=== PATIENT | female | born 2000 | race Caucasian/White ===

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

== ENCOUNTER 2022-04-24 19:32 | Inpatient (IN) | payer OTHER, SELFPAY ==
--- NOTE | ~2022-04-24 | CT_ITS ---
EXAMINATION: CT SOFT TISSUE NECK WITH CONTRAST CLINICAL INFORMATION: Bilateral tonsillar swelling. Abscess. Trismus. COMPARISON: None available. TECHNIQUE: Multidetector helical imaging was performed in the axial plane following the administration of 60 mL of Omnipaque 350 intravenous contrast. Multiple axial reformats and coronal/sagittal reconstructions were created the technologist workstation for review. This CT examination was performed using dose optimization techniques as appropriate, variously including the following: *Automated exposure control. *Adjustment of mA and/or kV according to patient size (this includes techniques or standardized protocols for targeted exams where dose is matched to indication/reason for exam; i.e. extremities or head). *Use of iterative reconstruction technique. DLP: 451 mGy-cm FINDINGS: No significant cutaneous thickening or subcutaneous inflammation. No discrete fluid collection within the deep tissues of the neck. The premaxillary, retromaxillary, pterygopalatine fossa, orbital apical, parapharyngeal, and prelaryngeal adipose tissue is maintained. Normal appearance of the parotid, submandibular, and thyroid glands. Bilateral level IIa lymph nodes measure up to 1.6 cm. Otherwise, scattered subcentimeter lymph nodes bilaterally, none of which are pathologically enlarged or abnormally enhancing. No demonstrated focal lesion or abnormal enhancement within the intrinsic tissues of the tongue or floor of mouth. Moderate prominence of the bilateral palatine tonsils. No overtly demonstrated focal lesion or collection. Otherwise, normal mucosal contours of the pharynx and larynx without abnormal enhancement. Normal appearance of the hyoid bone, thyroid cartilage, or cartilaginous trachea. The airways remains widely patent. No radiopaque foreign bodies. The atlantooccipital and atlantoaxial articulations remain well aligned. Reversal the normal cervical lordosis centered on C5. Otherwise, there is anatomic alignment of the vertebral bodies and posterior elements. No evidence of acute fracture or subluxation of the cervical spine. The vertebral body heights are maintained. The intervertebral disc spaces are maintained. No evidence of epidural collection. There is no prevertebral soft tissue swelling. Normal opacification of the cervical arterial and venous structures. The visualized portion of the skull base is without significant abnormalities. The visualized paranasal sinuses are clear. The mastoid air cells and middle ear cavities are clear. No demonstrated significant periapical odontogenic disease. CT Upper Chest: The visualized lung apices and upper mediastinum are within normal limits. CT/CT soft tissue neck w IV con IMPRESSION: 1. Moderate prominence of the bilateral palatine tonsils. No overtly demonstrated focal lesion or collection. 2. Bilateral mildly enlarged level IIa lymph nodes, likely reactive in nature. 3. No additional focal lesion, collection, lymphadenopathy, or abnormal enhancement within the soft tissues of the neck.
[2022-04-24 19:50] VITALS: BP 125/63; PULSE 87; RESP 20; TEMP 37; O2SAT 98; BMI 18.6
[2022-04-24 20:14] LABS: Strep A Nucleic Acid Negative (Negative)
[2022-04-24 20:25] LABS: Monotest Negative (Negative)
--- NOTE | 2022-04-24 21:21 | ED_ITS ---
HPI - General Adult General Chief complaint: General Medical Stated complaint: swollen tonsils Time Seen by Provider: 04/24/22 20:56 Source: patient Mode of arrival: ambulatory Limitations: no limitations History of Present Illness HPI narrative: This is a 21-year-old female presenting to the emergency department with severe sore throat x4 days progressively worsening. Patient tells me that she frequently gets swollen tonsils however it is never been this bad. She tells me she is having difficulties controlling her secretions and she has noted that her voice has been changing progressively worsening over the past 4 days. Patient tells me she was seen at the school clinic and was prescribed aspirin and an other medication. Patient reports 10/10 sore throat and feels like it radiates into her right ear and right jaw. She tells me the pain is bilateral however worse on the right. She reports subjective fevers and chills. Denies chest pain, shortness of breath, nausea, vomiting, abdominal pain, headache, dizziness, vision changes. Patient's still has her tonsils. Related Data Allergies Allergy/AdvReac Type Severity Reaction Status Date / Time shellfish derived Allergy Hives Verified 11/21/21 13:42 Review of Systems Review of Systems: Constitutional : No Weight loss, No Fever, No Chills, No Fatigue, No Malaise ENT/Mouth : + sore throat, No Rhinorrhea Eyes: No Eye Pain, No Swelling, No Redness Cardiovascular : No Chest Pain, No SOB, No Dyspnea on Exertion, No Orthopnea, No Edema, No Palpitations Respiratory : No Cough, No Sputum, No Wheezing Gastrointestinal : No Nausea, No Vomiting, No Diarrhea, No Constipation, No abdominal Pain, No Hematochezia, No Melena Genitourinary : No Dysuria, No Urinary Frequency, No Hematuria, Musculoskeletal : No joint pain, No Myalgias, No Joint Swelling Skin : No Skin Lesions, No rash Neuro : No Weakness, No Numbness, No Dizziness, No Headache Psych : No Anxiety/Panic, No Depression All other systems reviewed and are negative Yes all other systems are reviewed and are negative [facility] Past Medical History Attestation statement: The following information was validated with the patient. Source: old records reviewed and nursing notes reviewed Social History Social History Advance Directives: No Advance Directives Information Provided: No Physical Exam ED Vital Signs: Vital Signs - 24 hr 04/24/22 19:50 04/24/22 22:11 Temperature 98.6 F Pulse Rate 87 84 Respiratory Rate 20 17 Blood Pressure 125/63 115/56 L Pulse Oximetry 98 95 Oxygen Delivery Method Room Air Room Air BMI result Body Mass Index 18.6 Vital signs stable Appearance: Alert.? Oriented X3. Patient appears uncomfortable. Patient with muffled voice and is having difficulty controlling secretions. Head: Normocephalic, atraumatic, no step-offs or deformities Eyes: Pupils equal, round and reactive to light.? ENT: Bilateral tonsils with severe erythema, edema, compressing the uvula at the midline. Right-sided submandibular adenopathy noted. Right-sided mastoid tenderness noted. No lymphadenopathy on the left, no mastoid tenderness on the left. ?Bilateral tympanic membranes within normal limits, ear canals within normal limits. No pain with manipulation of external ear. Neck: Normal inspection.? Neck supple.? CVS: Normal heart rate and rhythm.? Pulses normal.? Respiratory: No respiratory distress.? Breath sounds normal.? Abdomen: Soft and nontender.? Skin: Skin warm and dry.? Normal skin color.? Normal skin turgor.? Extremities: 5/5 strength to bilateral upper and lower extremities Neuro: Oriented X 3.? No motor deficit.? No sensory deficit. CN 2-12 intact Course Reevaluation(s) Reevaluation #1: Patient noted to have his leukocytosis likely secondary to throat infection, chemistry with no acute electrolyte abnormalities requiring intervention. Lactic normal. HCG negative. Strep and mono negative. CT of soft tissue neck pending. Patient remains hemodynamically stable , still controlling her own se cretions. Time: 22:23 Reevaluation #2: Patients trismus improving. Feels slightly better. CT of neck soft tissues pending. Disscussed case w/ hospitalist who do not feel comfortable taking this patient for admission. Recommend reaching out to ICU. Time: 22:50 Reevaluation #3: Discussed case with Dr. Perez who would like me to share CT results with him prior to making a decision about admission. Time: 23:14 Additional Reevaluation(s): [address] Maharaj ENT at [facility] who tells me that there is not much ENT would do, he recommends waiting 4-6 hours and observing patient until Decadron takes full affect. He recommends discharging this patient home o n clindamycin 300 mg q.i.d. for 10 days and outpatient follow-up with ENT. He tells me there is a large abscess for us to call back [facility]. He also reports that if she starts having difficulty controlling secretions or airway compromise to please contact ENT at [facility]. 2334 CT soft tissues neck with moderate prominence of bilateral palatine tonsils, no demonstrated focal lesion or collection. Enlarged level 2A lymph nodes likely reactive. No focal lesions, collection, lymphadenopathy or abnormal enhancement within soft tissues of the neck. Reached out to Dr. Coronel for possible ICU admission 2335 Accepted to ICU for airway monitoring Medical Decision Making MDM Narrative Medical decision making narrative: 2150 21-year-old female presents with severe sore throat x4 days progressively worsening. Is having difficulty controlling secretions and reports changes in voice. Physical examination with severe tonsillar erythema, edema bilaterally with compression of the uvula. Trismus noted as well as right-sided submandibular adenopathy and right-sided mastoid tenderness. Patient appears uncomfortable, again with difficulty controlling secretions. Concerns for airway compromise, peritonsillar abscess. Other differentials include strep, mono, viral pharyngitis. Plan at this time is to obtain a Monospot, strep test, gonorrhea and chlamydia throat swab. Will obtain CT of neck soft tissues to rule out peritonsillar abscess. Patient will receive clindamycin IV as well as fluids will also give Decadron IV. I suspect that patient will need transfer to tertiary center with ENT. This case was discussed with my attending who agrees with my diagnosis and treatment plan. Medical Records Medical records reviewed: Yes I reviewed the patient's medical records. Lab Data Lab results reviewed: Yes I reviewed the patient's lab results. Result diagrams: 04/24/22 21:40 04/24/22 21:40 Labs: Lab Results 04/24/22 04/24/22 04/24/22 Range/Units 19:58 19:58 21:40 WBC 13.4 H (4.8-10.8) X10*3/uL RBC 4.57 (4.20-5.50) X10*6/uL Hgb 13.5 (12.0-16.0) g/dl Hct 40.7 (37.0-47.0) % MCV 89.1 (80.0-98.0) fL MCH 29.5 (27.0-33.0) pg MCHC 33.2 (31.0-35.0) g/dl RDW 13.1 (11.0-16.0) % Plt Count 342 (160-400) X10*3/uL MPV 9.5 (9.4-12.3) fL Immature Gran % (Auto) 0.4 (0.0-0.4) % Neut % (Auto) 84.5 H (45-73) % Lymph % (Auto) 7.5 L (20-40) % Pierce % (Auto) 7.3 (2-11) % Eos % (Auto) 0.1 (0-4) % Baso % (Auto) 0.2 (0-2) % Lymph # (Auto) 1.0 L (1.2-4.9) X10*3/uL Pierce # (Auto) 1.0 (0.1-1.2) X10*3/uL Eos # (Auto) 0.0 (0.0-0.4) X10*3/uL Baso # (Auto) 0.0 (0.0-0.2) X10*3/uL Abs Immat Gran (auto) 0.06 H (0.00-0.03) X10*3/uL Absolute Neuts (auto) 11.3 H (2.0-8.3) x10*3/uL Absolute Nucleated RBC 0.000 (0.0-0.012) X10*3/uL Nucleated RBC % (auto) 0.0 (0.0-0.2) /100WBC Sodium (135-145) mmol/L Potassium (3.3-5.1) mmol/L Chloride (96-108) mmol/L Carbon Dioxide (22-29) mmol/L Anion Gap (12-20) BUN (9-16) mg/dL Creatinine (0.5-1.4) mg/dL Estim Creat Clear Calc Estimated GFR Random Glucose (60-115) mg/dL Lactic Acid (0.5-2.0) mmol/L Calcium (8.4-10.2) mg/dL Magnesium (1.6-2.6) mg/dL Total Bilirubin (0.0-1.0) mg/dL AST (5-31) U/L ALT (0-31) U/L Alkaline Phosphatase (39-117) U/L Total Protein (6.5-8.0) g/dL Albumin (3.5-5.0) g/dL Beta HCG, Quant mIU/mL COVID-19 (MARISOL) (Negative) COVID-19 Clin Com Monoscreen Negative (Negative) S. pyogenes GrpA TIM Negative (Negative) 04/24/22 04/24/22 04/24/22 Range/Units 21:40 21:40 21:40 WBC (4.8-10.8) X10*3/uL RBC (4.20-5.50) X10*6/uL Hgb (12.0-16.0) g/dl Hct (37.0-47.0) % MCV (80.0-98.0) fL MCH (27.0-33.0) pg MCHC (31.0-35.0) g/dl RDW (11.0-16.0) % Plt Count (160-400) X10*3/uL MPV (9.4-12.3) fL Immature Gran % (Auto) (0.0-0.4) % Neut % (Auto) (45-73) % Lymph % (Auto) (20-40) % Pierce % (Auto) (2-11) % Eos % (Auto) (0-4) % Baso % (Auto) (0-2) % Lymph # (Auto) (1.2-4.9) X10*3/uL Pierce # (Auto) (0.1-1.2) X10*3/uL Eos # (Auto) (0.0-0.4) X10*3/uL Baso # (Auto) (0.0-0.2) X10*3/uL Abs Immat Gran (auto) (0.00-0.03) X10*3/uL Absolute Neuts (auto) (2.0-8.3) x10*3/uL Absolute Nucleated RBC (0.0-0.012) X10*3/uL Nucleated RBC % (auto) (0.0-0.2) /100WBC Sodium 138 (135-145) mmol/L Potassium 4.2 (3.3-5.1) mmol/L Chloride 100 (96-108) mmol/L Carbon Dioxide 24 (22-29) mmol/L Anion Gap 18 (12-20) BUN 12 (9-16) mg/dL Creatinine 0.99 (0.5-1.4) mg/dL Estim Creat Clear Calc 85.0 Estimated GFR > 60 Random Glucose 97 (60-115) mg/dL Lactic Acid 0.8 (0.5-2.0) mmol/L Calcium 9.6 (8.4-10.2) mg/dL Magnesium 2.0 (1.6-2.6) mg/dL Total Bilirubin 0.9 (0.0-1.0) mg/dL AST 17 (5-31) U/L ALT 11 (0-31) U/L Alkaline Phosphatase 78 (39-117) U/L Total Protein 7.6 (6.5-8.0) g/dL Albumin 4.9 (3.5-5.0) g/dL Beta HCG, Quant < 2 mIU/mL COVID-19 (MARISOL) Negative (Negative) COVID-19 Clin Com See Note Monoscreen (Negative) S. pyogenes GrpA TIM (Negative) Critical Care Time Critical Care Time Critical Care Time: Yes Total Critical Care Time: 35 Attestation: I attest to this time spent taking care of the patient, obtaining history, physical, reviewing labs, imaging, speaking to my attending, speaking to specialist. Discharge Plan Discharge Clinical Impression: Pharyngitis Patient Disposition: Admitted As Inpatient
[2022-04-24 21:48] LABS: Basophils Percent Auto 0.2 % (0-2); Eosinophils Percent Auto 0.1 % (0-4); Hematocrit 40.7 % (37.0-47.0); Hemoglobin 13.5 g/dl (12.0-16.0); Imm Gran Abs Auto 0.06 X10*3/uL (0.00-0.03); Imm Gran Pct Auto 0.4 % (0.0-0.4); Lymphocytes Percent Auto 7.5 % (20-40); MANUAL DIFF FLAG NO; Mean Corpuscular HGB Conc 33.2 g/dl (31.0-35.0); Mean Corpuscular Hemoglobin 29.5 pg (27.0-33.0); Mean Corpuscular Volume 89.1 fL (80.0-98.0); Mean Platelet Volume 9.5 fL (9.4-12.3); Monocytes Percent Auto 7.3 % (2-11); Neutrophils Absolute Auto 11.3 x10*3/uL (2.0-8.3); Neutrophils Percent Auto 84.5 % (45-73); Platelet Count 342 X10*3/uL (160-400); Red Blood Count 4.57 X10*6/uL (4.20-5.50); Red Cell Distribution Width 13.1 % (11.0-16.0); White Blood Count 13.4 X10*3/uL (4.8-10.8)
[2022-04-24] MEDS: 0.9 % Sodium Chloride 1,000 ML 999 ML IV (21:57)
[2022-04-24] MEDS: Ketorolac Tromethamine 15 MG/ML VIAL 30 MG IVPUSH (22:01)
[2022-04-24] MEDS: dexAMETHasone sod phosphate 10 MG/ML VIAL IVPUSH (22:01)
[2022-04-24] MEDS: Clindamycin Phosphate/D5W 600 MG/50 ML PIGGYBACK 100 MG IV (22:02)
[2022-04-24] MEDS: Lidocaine HCl Viscous 2 % 15 ML SOLUTION MUCOUS MEM (22:02)
[2022-04-24 22:04] LABS: Lactic Acid 0.8 mmol/L (0.5-2.0)
[2022-04-24 22:09] LABS: Alanine Aminotransferase 11 U/L (0-31); Albumin Level 4.9 g/dL (3.5-5.0); Alkaline Phosphatase 78 U/L (39-117); Anion Gap 18 (12-20); Aspartate Amino Transferase 17 U/L (5-31); Bilirubin Total 0.9 mg/dL (0.0-1.0); Blood Urea Nitrogen 12 mg/dL (9-16); Calcium 9.6 mg/dL (8.4-10.2); Carbon Dioxide 24 mmol/L (22-29); Chloride 100 mmol/L (96-108); Estimated Glomerular Filt Rate > 60; Glucose Random 97 mg/dL (60-115); Potassium 4.2 mmol/L (3.3-5.1); Sodium 138 mmol/L (135-145); Total Protein 7.6 g/dL (6.5-8.0)
[2022-04-24 22:10] LABS: COVID-19 Test Negative (Negative); IDNOW Serial# 9DB6401D
[2022-04-24 22:11] VITALS: BP 115/56; PULSE 84; RESP 17; O2SAT 95
[2022-04-24 22:15] LABS: HCG Quantitative < 2 mIU/mL
[2022-04-24] MEDS: iohexoL 350 MG/ML 100 ML INFUS..BTL 60 ML IV (23:00)
--- NOTE | 2022-04-24 23:07 | PC.NURSE ---
@[phone] OLGA BARCENAS REQUEST CALL OUT TO [facility] PT TX LINE FOR THIS PT EMANI ANSWERS,TAKES PT INFO AND CALL BACK NUMBER THAN STATES SHE WILL CALL HER BACK
--- NOTE | 2022-04-24 23:15 | PC.NURSE ---
@ [phone] EMANI FROM THE [facility] PT TX LINE CALLS BACK TO SPEAK WITH OLGA BARCENAS TAKES OVER CALL RIGHT AWAY
[2022-04-25] VITALS (15 sets, daily range): BP systolic 89–124; BP diastolic 39–62; PULSE 58–75; RESP 13–22; TEMP 36.4–36.9; O2SAT 96–99; BMI 18.6
[2022-04-25 00:13] LABS: Appearance Urine Cloudy; Color Urine Dark Yellow; Glucose Urine UA Negative (Negative); Leukocyte Esterase Urine Trace (Negative); Nitrite Urine Negative (Negative); PH 5.5 (5.0-9.0); Specific Gravity - Urine >= 1.030 (1.005-1.025); UMIC TRIGGER UACC YES; Urine Blood Negative (Negative); Urine Ketones 80 mg/dL (Negative); Urine Protein 30 (1+) mg/dL (Neg-Trace)
[2022-04-25 00:15] LABS: Bacteria Urine 3+ (None Seen); Hyaline Casts Urine 0-2 /LPF (0-2); UACC Culture Trigger YES
--- NOTE | 2022-04-25 01:00 | PC.NURSE ---
ICU PA in room assessing patient
--- NOTE | 2022-04-25 01:17 | PM.CCHP ---
History of Present Illness Date of Service: 04/25/22 Attending physician on admission: Srikanth Perez Chief Complaint: sore throat The patient is a 21-year-old female with no past medical history? who presented to the emergency room with sore throat x4 days? that progressively worsened.? Patient reports that she gets frequent? swollen tonsils throughout the year, but this time she is having difficulty controlling secretions and noted that her voice was changing.? She states she went to her school clinic was prescribed aspirin and another medication she is unsure.?? ?In the emergency room patient tonsils noted to be severely swollen compressing uvula at the midline,? white count elevated to? 13.4.? Patient hemodynamically stable. ? ED provider consulted with? ENT,? who recommended Decadron and clindamycin.? In follow-up outpatient.?? CT soft tissue of the neck showing moderate prominence of bilateral palatine tonsils, no demonstrated focal lesion or collection.? Enlarged level IIa lymph nodes.? No focal lesions, collection, lymphadenopathy or abnormal enhancement within soft tissues of the neck ?Patient will be admitted to the ICU for airway? management Review of Systems Review of Systems: Constitutional : No Weight loss, No Fever, No Chills, No Fatigue, No Malaise ENT/Mouth : + sore throat, No Rhinorrhea Eyes: No Eye Pain, No Swelling, No Redness Cardiovascular : No Chest Pain, No SOB, No Dyspnea on Exertion, No Orthopnea, No Edema, No Palpitations Respiratory : No Cough, No Sputum, No Wheezing Gastrointestinal : No Nausea, No Vomiting, No Diarrhea, No Constipation, No abdominal Pain, No Hematochezia, No Melena Genitourinary : No Dysuria, No Urinary Frequency, No Hematuria, Musculoskeletal : No joint pain, No Myalgias, No Joint Swelling Skin : No Skin Lesions, No rash Neuro : No Weakness, No Numbness, No Dizziness, No Headache Psych : No Anxiety/Panic, No Depression Yes all other systems are reviewed and are negative [facility] Social History Social History Advance Directives: No Advance Directives Information Provided: No Meds Allergies Allergy/AdvReac Type Severity Reaction Status Date / Time shellfish derived Allergy Hives Verified 11/21/21 13:42 Active Medications: Current Medications Enoxaparin Sodium (Enoxaparin Sodium 30 Mg/0.3 Ml Syringe) 30 mg SUBCUT Q24H [facility] Clindamycin Phosphate (Cleocin) 600 mg in 50 mls @ 100 mls/hr IV Q8H [facility] Pharmacy Consult (Consult Rx Perform Med Rec) 1 each MISCELLANE ONCE PRN PRN Reason: Consult order Physical Exam Vital Signs: Vital Signs: Last Vital Signs Temp 98.4 F 04/25/22 00:11 Pulse 61 04/25/22 00:11 Resp 16 04/25/22 00:11 BP 107/50 L 04/25/22 00:11 Pulse Ox 97 04/25/22 00:11 O2 Del Method 04/25/22 00:11 BMI result Body Mass Index 18.6 Constitutional: Alert, in no distress. Sitting comfortably on the? stretcher. Mental Status: Oriented to person, place and time. Head: Normocephalic. Eyes: Pupils are equal, round and reactive to light. Extraocular muscles intact. Ear, Nose and Throat: Bilateral tonsils with severe erythema, edema, compressing the uvula at the midline.? Right-sided submandibular adenopathy noted.? Right-sided mastoid tenderness noted.? No lymphadenopathy on the left, no mastoid tenderness on the left.? Bilateral tympanic membranes within normal limits, ear canals within normal limits.? No pain with manipulation? Neck: Supple, Full range of motion. Respiratory: lungs CTA, no wheezing, rhonchi, rales Cardiovascular: S1 S2 regular. No murmurs, rubs or gallops. Gastrointestinal: Abdomen soft, non-tender, non-distended. Normal bowel sounds. No pulsatile mass. No hepatosplenomegaly. Genitourinary: No costovertebral angle tenderness. Neurologic: Cranial nerves II-XII grossly intact. No focal neurological deficits. Moves all extremities spontaneously. Sensation intact bilaterally. Skin: No rashes or lesions. No petechiae or purpura. Musculoskeletal: No cyanosis or clubbing. No gross deformities. Normal range of motion. Psychiatric: Normal mood and affect Results Labs CBC and Chem 7: 04/24/22 21:40 04/24/22 21:40 Labs: Laboratory Results - last 24 hr 04/24/22 04/24/22 04/24/22 19:58 19:58 21:40 MCV 89.1 MCH 29.5 MCHC 33.2 RDW 13.1 Plt Count 342 MPV 9.5 Immature Gran % (Auto) 0.4 Neut % (Auto) 84.5 H Lymph % (Auto) 7.5 L [place] % (Auto) 7.3 Eos % (Auto) 0.1 Baso % (Auto) 0.2 Lymph # (Auto) 1.0 L [place] # (Auto) 1.0 Eos # (Auto) 0.0 Baso # (Auto) 0.0 Abs Immat Gran (auto) 0.06 H Absolute Neuts (auto) 11.3 H Absolute Nucleated RBC 0.000 Nucleated RBC % (auto) 0.0 Anion Gap Estim Creat Clear Calc Estimated GFR Random Glucose Lactic Acid Calcium Magnesium Total Bilirubin AST ALT Alkaline Phosphatase Total Protein Albumin Beta HCG, Quant Urine Color Urine Appearance Urine pH Ur Specific [place] Urine Protein Urine Glucose (UA) Urine Ketones Urine Blood Urine Nitrite Ur Leukocyte Esterase Urine RBC Urine WBC Ur Squamous Epith Cells Urine Bacteria Hyaline Casts COVID-19 (MARISOL) COVID-19 Clin Com Monoscreen Negative S. pyogenes GrpA TIM Negative 04/24/22 04/24/22 04/24/22 21:40 21:40 21:40 MCV MCH MCHC RDW Plt Count MPV Immature Gran % (Auto) Neut % (Auto) Lymph % (Auto) [place] % (Auto) Eos % (Auto) Baso % (Auto) Lymph # (Auto) [place] # (Auto) Eos # (Auto) Baso # (Auto) Abs Immat Gran (auto) Absolute Neuts (auto) Absolute Nucleated RBC Nucleated RBC % (auto) Anion Gap 18 Estim Creat Clear Calc 85.0 Estimated GFR > 60 Random Glucose 97 Lactic Acid 0.8 Calcium 9.6 Magnesium 2.0 Total Bilirubin 0.9 AST 17 ALT 11 Alkaline Phosphatase 78 Total Protein 7.6 Albumin 4.9 Beta HCG, Quant < 2 Urine Color Urine Appearance Urine pH Ur Specific [place] Urine Protein Urine Glucose (UA) Urine Ketones Urine Blood Urine Nitrite Ur Leukocyte Esterase Urine RBC Urine WBC Ur Squamous Epith Cells Urine Bacteria Hyaline Casts COVID-19 (MARISOL) Negative COVID-19 Clin Com See Note Monoscreen S. pyogenes GrpA TIM 04/25/22 00:05 MCV MCH MCHC RDW Plt Count MPV Immature Gran % (Auto) Neut % (Auto) Lymph % (Auto) [place] % (Auto) Eos % (Auto) Baso % (Auto) Lymph # (Auto) [place] # (Auto) Eos # (Auto) Baso # (Auto) Abs Immat Gran (auto) Absolute Neuts (auto) Absolute Nucleated RBC Nucleated RBC % (auto) Anion Gap Estim Creat Clear Calc Estimated GFR Random Glucose Lactic Acid Calcium Magnesium Total Bilirubin AST ALT Alkaline Phosphatase Total Protein Albumin Beta HCG, Quant Urine Color Dark Yellow Urine Appearance Cloudy Urine pH 5.5 Ur Specific [place] >= 1.030 H Urine Protein 30 (1+) H Urine Glucose (UA) Negative Urine Ketones 80 Urine Blood Negative Urine Nitrite Negative Ur Leukocyte Esterase Trace H Urine RBC 3-5 H Urine WBC 6-10 H Ur Squamous Epith Cells 11-20 Urine Bacteria 3+ Hyaline Casts 0-2 COVID-19 (MARISOL) COVID-19 Clin Com Monoscreen S. pyogenes GrpA TIM Imaging Radiologist's Impressions: Impressions Soft Tissue Neck CT 04/24/22 22:55 IMPRESSION: 1. Moderate prominence of the bilateral palatine tonsils. No overtly demonstrated focal lesion or collection. 2. Bilateral mildly enlarged level IIa lymph nodes, likely reactive in nature. 3. No additional focal lesion, collection, lymphadenopathy, or abnormal enhancement within the soft tissues of the neck. Assessment and Plan (1) Pharyngitis: Status: Acute (2) Leukocytosis: Status: Acute Plan 21-year-old female with no past medical history admitted to ICU for pharyngitis requiring airway monitoring Neuro:? No acute issues. Cardiac:? No acute issues. Pulmonary:?? ?Pharyngitis-? patient?s tonsils compressing uvula at the midline,? she is protecting airway, in no respiratory distress.? Received? Decadron and clindamycin in the emergency room.? Will continue antibiotics.? Continue close monitor airway Renal:? No acute issues.?? Endo:? No acute issues.?? GI:? No acute issues. ID:?? ?Leukocytosis- ? due to pharyngitis, normal lactic, and patient hemodynamically stable.? Continue antibiotics Heme/Onc:? No acute issues. Psych:? No acute issues. Miscellaneous:? No acute issues. Prophylaxis:? Lovenox , doesn't require GI prophylaxis Diet:? NPO? Code status:? full code Critical care time spent:? 30 minutes Case discussed with Dr Perez Critical Care Time Critical Care Time (minutes): 30
--- NOTE | 2022-04-25 02:19 | PC.NURSE ---
pt reports huge relief from pain medications, iv abx, and iv fluids. pt resting comfortably on stretcher. mom at bedside. waiting for ICU bed assignment.
[2022-04-25] MEDS: Enoxaparin Sodium 30 MG/0.3 ML SYRINGE SUBCUT (02:40)
[2022-04-25 05:44] LABS: VBG Base Excess -1.2 mmol/L; VBG HCO3 22 mmol/L (22-26); VBG pCO2 33 mmHg; VBG pH 7.42 (7.32-7.43); VBG pO2 34 mmHg
[2022-04-25] MEDS: Clindamycin Phosphate/D5W 600 MG/50 ML PIGGYBACK 100 MG IV ×3 (06:24→22:42)
[2022-04-25 06:33] LABS: Basophils Percent Auto 0.2 % (0-2); Hematocrit 37.4 % (37.0-47.0); Hemoglobin 12.2 g/dl (12.0-16.0); Imm Gran Abs Auto 0.08 X10*3/uL (0.00-0.03); Imm Gran Pct Auto 0.6 % (0.0-0.4); Lymphocytes Absolute Auto 0.6 X10*3/uL (1.2-4.9); Lymphocytes Percent Auto 4.7 % (20-40); MANUAL DIFF FLAG SCAN; Mean Corpuscular HGB Conc 32.6 g/dl (31.0-35.0); Mean Corpuscular Hemoglobin 29.3 pg (27.0-33.0); Mean Corpuscular Volume 89.7 fL (80.0-98.0); Mean Platelet Volume 10.3 fL (9.4-12.3); Monocytes Absolute Auto 0.1 X10*3/uL (0.1-1.2); Monocytes Percent Auto 0.6 % (2-11); Neutrophils Absolute Auto 11.7 x10*3/uL (2.0-8.3); Neutrophils Percent Auto 93.9 % (45-73); Platelet Count 346 X10*3/uL (160-400); Red Blood Count 4.17 X10*6/uL (4.20-5.50); Red Cell Distribution Width 12.8 % (11.0-16.0); SCAN SMEAR FLAG 1; White Blood Count 12.5 X10*3/uL (4.8-10.8)
[2022-04-25 06:53] LABS: SLIDE REVIEW VERIFIED
[2022-04-25 06:56] LABS: Anion Gap 19 (12-20); Blood Urea Nitrogen 15 mg/dL (9-16); Calcium 9.4 mg/dL (8.4-10.2); Carbon Dioxide 21 mmol/L (22-29); Chloride 103 mmol/L (96-108); Creatinine Clr Calc Pharmacy 97.8; Estimated Glomerular Filt Rate > 60; Glucose Random 141 mg/dL (60-115); Magnesium 2.3 mg/dL (1.6-2.6); Phosphorus 5.4 mg/dL (2.7-4.5); Potassium 4.9 mmol/L (3.3-5.1); Sodium 138 mmol/L (135-145)
--- NOTE | 2022-04-25 07:58 | PHA.MEDREC ---
Pharmacy Consult ? Medication Reconciliation Pharmacy has completed the medication reconciliation.
[2022-04-25 08:37] LABS: Venous Blood Gas Refer to POC result
--- NOTE | 2022-04-25 10:30 | PM.CCN ---
Critical Care Event Note Summary Date of Service: 04/25/22 Code activated: No Narrative: Pharyngitis with no abscess identified on CT neck soft tissue. Tonsillar swelling is improving. On exam: no stridor, normal voice, no compression of uvula by tonsils. Systolic BP in 90s. Will continue on clindamycin and transfer to general medical grant. Critical Care Time (minutes): 0
--- NOTE | 2022-04-25 12:08 | PM.EVENT ---
Event Note Date of Service: 04/25/22 Event Note: Patient already seen by ICU service this morning. Patient seen and examined-admitted for furniture pharyngitis, Physical exam: Similar as per ICU note. Assessment and plan coordinated in ICU note Will continue antibiotics, added throat culture for strep. Blood pressure was softer, monitor closely. Monitor for respiratory distress status any deterioration in respiratory status may need ICU attention.
--- NOTE | 2022-04-25 15:39 | MHC.CM.PN ---
CM MET [facility] PT AND PARENTS AT BEDSIDE PT LIVES AT HOME, SHE IS IN SCHOOL AND WORKS WHEN ON BREAK PT USES NO DME AND HAS NO SERVICES DECLINES TO COMPLETE HCP AT THIS TIME PCP: AT [facility]: GWEN ROY DCP: HOME NO SERVICES FAMILY TO TRANSPORT
[2022-04-26] VITALS: BP 114/51; PULSE 66; RESP 14; TEMP 36.6; O2SAT 97
[2022-04-26] MEDS: Enoxaparin Sodium 30 MG/0.3 ML SYRINGE SUBCUT (01:38)
[2022-04-26 03:02] VITALS: BP 106/54; PULSE 92; RESP 14; TEMP 36.2; O2SAT 99
[2022-04-26] MEDS: Clindamycin Phosphate/D5W 600 MG/50 ML PIGGYBACK 100 MG IV (06:06)
[2022-04-26 07:42] VITALS: BP 120/57; PULSE 82; RESP 18; TEMP 36.6; O2SAT 99
[2022-04-26] MEDS: Lidocaine HCl Viscous 2 % 15 ML SOLUTION MUCOUS MEM (08:59)
[2022-04-26 11:04] VITALS: BP 121/77; PULSE 86; RESP 18; TEMP 37.1; O2SAT 99
--- NOTE | 2022-04-26 13:14 | MHC.CM.PN ---
Plan for pt to d/c home today w/ no services. Parents to transport.
--- NOTE | 2022-04-26 13:18 | MHC.CLN ---
NUTRITION PATIENT WITH DX PHARYNGITIS. ATE VERY WELL YESTERDAY. REPORTS THAT THROAT MORE SORE TODAY AND NOT EATING MUCH. BMI=18.6. DOES NOT APPEAR MALNOURISHED AND NOT AT HIGH NUTRITIONAL RISK. RD WILL FOLLOW UP WEEKLY.
[2022-04-26] MEDS: Mag&Al/Sim/Diphenhyd/Lidocaine 10 ML ORAL.SUSP PO (13:38)
[2022-04-26] MEDS: dexAMETHasone sod phosphate 10 MG/ML VIAL IVPUSH (15:04)
[2022-04-26] MEDS: guaiFEN/Codeine SF 200/20/10ML 10 ML LIQUID PO (15:04)
--- NOTE | 2022-04-26 15:56 | P.PNIM_ITS ---
Subjective Subjective Date of Service: 04/26/22 Interval History: Possible pharyngitis Review of Systems Patient is still has swelling somewhat and also pain with eating But can swallow, no shortness of breath Denies any chest pain or nausea or vomiting or fever or chills. Physical Exam Vital Signs: Vital Signs: Last Vital Signs Temp 98.8 F 04/26/22 11:04 Pulse 86 04/26/22 11:04 Resp 18 04/26/22 11:04 BP 121/77 04/26/22 11:04 Pulse Ox 99 04/26/22 11:04 O2 Del Method 04/26/22 11:04 BMI result Body Mass Index 18.6 Appearance: Alert.? Oriented X3.? not in distress.? ent: still has mild tonsillar swelling, erythema No voice changes or stridor. cvs: rrr, [id number] , no murmur res: clear to auscultation ,no rhonchii or wheezing abd: no rebound or guarding ,nt, bs present. ext pulses present , no cyanosis ,Gait well balanced well coordinated. neuro: axo3 , nonfocal. Objective Data Active Medications Enoxaparin Sodium (Enoxaparin Sodium 30 Mg/0.3 Ml Syringe) 30 mg SUBCUT Q24H [facility] Last Admin: 04/26/22 01:38 Dose: 30 mg Documented By: DEXTER Guaifenesin/Codeine Phosphate (Guaifen/Codeine Sf 200/20/10ml 10 Ml Liquid) 10 ml PO Q4H PRN PRN Reason: cough Last Admin: 04/26/22 15:04 Dose: 10 ml Documented By: RACHID Lidocaine HCl (Lidocaine Hcl Viscous 2 % 15 Ml Solution) 15 ml MUCOUS MEM Q3H PRN PRN Reason: Pain, Mild (Pain Scale 1-3) Last Admin: 04/26/22 08:59 Dose: 15 ml Documented By: RACHID Lidocaine/Diphenhydr/Alum/Mg/Simeth (Mag&Al/Sim/Diphenhyd/Lidocaine 10 Ml Oral.S retirement) 10 ml PO Q4H PRN; Protocol PRN Reason: throat pain Last Admin: 04/26/22 13:38 Dose: 10 ml Documented By: RACHID Penicillin V Potassium (Penicillin V Potassium 250 Mg Tablet) 500 mg PO TID [facility] Pharmacy Consult (Consult Rx Perform Med Rec) 1 each MISCELLANE ONCE PRN PRN Reason: Consult order Labs CBC & Chem 7: 04/25/22 05:39 04/25/22 05:39 Microbiology Microbiology Results: Microbiology 04/25/22 Unknown Urine Culture - Final Urine clean catch - Clean Catch Midstream 04/25/22 10:40 Throat Culture - Preliminary Throat Culture in progress. 04/24/22 21:40 Blood Culture - Preliminary Blood - Venous No growth after 24 hours. 04/24/22 21:40 Blood Culture - Preliminary Blood - Venous No growth after 24 hours. Assessment and Plan (1) Leukocytosis: Status: Acute (2) Pharyngitis: Status: Acute Plan ?21-year-old female with no past medical history admitted to ICU for pharyngitis requiring airway monitoring ?Pharyngitis-? patient?s tonsils compressing uvula at the midline,? she is protecting airway, in no respiratory distress.? Received? Decadron and clindamycin in the emergency room.? Will continue antibiotics.?? Given another dose of dexamethasone, also added magic mouth wash and Hycodan, antibiotic changed to insulin v as per ID. Patient still has somewhat symptoms of pain and tonsillar swelling-but no respiratory or dysphagia symptoms Continue to monitor In addition serology for gonococcal as well as throat culture for strep are pending Leukocytosis improving, blood culture negative at 48 hours Above management discussed with the patient and her mother in detail length upon the both understand and in agreement with the plan. Inpatient need: Pharyngitis with tonsillar swelling need IV steroids as well as antibiotics. Need monitoring for respiratory status 24 hours. Quality Stroke Does the patient have a stroke diagnosis?: No VTE Prior VTE?: No VTE Risk Level:: Medical - low VTE Device Contraindication: Treatment Not Indicated VTE Drug Contraindication: N/A - Med Ordered
[2022-04-26 16:00] VITALS: BP 96/53; PULSE 73; RESP 16; TEMP 36.5; O2SAT 98
[2022-04-26] MEDS: Penicillin V Potassium 250 MG TABLET 500 MG PO ×2 (16:17→21:36)
[2022-04-26 20:00] VITALS: BP 117/59; PULSE 69; RESP 18; TEMP 36.6; O2SAT 98
[2022-04-27] VITALS: BP 105/54; PULSE 66; RESP 18; TEMP 36.6; O2SAT 100
[2022-04-27] MEDS: Enoxaparin Sodium 30 MG/0.3 ML SYRINGE SUBCUT (00:55)
[2022-04-27 04:00] VITALS: BP 104/54; PULSE 87; RESP 18; TEMP 36; O2SAT 100
[2022-04-27 07:45] VITALS: BP 113/66; PULSE 69; RESP 18; TEMP 36.5; O2SAT 99
--- NOTE | 2022-04-27 09:11 | PM.DS ---
DS: Providers Provider Date of Service: 04/27/22 Date of admission: 04/25/22 01:11 Date of discharge: 04/27/22 Primary care physician: Unknown Physician DS: Diagnosis Discharge Diagnosis (1) Leukocytosis: Status: Acute (2) Pharyngitis: Status: Acute DS: Summary Hospital Course Hospital Course: 21-year-old female with no past medical history? who presented to the emergency room with sore throat x4 days? that progressively worsened.? Patient reports that she gets frequent? swollen tonsils throughout the year, but this time she is having difficulty controlling secretions and noted that her voice was changing.? She states she went to her school clinic was prescribed aspirin and another medication she is unsure.?? ?In the emergency room patient tonsils noted to be severely swollen compressing uvula at the midline,? white count elevated to? 13.4.? Patient hemodynamically stable. ? ED provider consulted with? ENT,? who recommended Decadron and clindamycin.? In follow-up outpatient.?? CT soft tissue of the neck showing moderate prominence of bilateral palatine tonsils, no demonstrated focal lesion or collection.? Enlarged level IIa lymph nodes.? No focal lesions, collection, lymphadenopathy or abnormal enhancement within soft tissues of the neck ?Patient will be admitted to the ICU for airway? management Hospital course Patient admitted to the ICU overnight without any acute issues with respect to airway. She was transitioned to the general medical floor; she was maintain on Decadron and switch to pen VK as per Infectious Disease. She has been 48 hours without fever or respiratory distress. At this point she is medically acceptable for discharge on a Medrol Dosepak and complete a 10 day course of Pen-VK Time Spent with Patient Time attestation: Total time spent providing and/or coordinating discharge services: Discharge coordination time: Greater than 30 minutes Quality: Safe Use of Opioids Does Pt have an Active Cancer Diagnosis on the Problem List?: No Quality: Stroke Does the patient have a stroke diagnosis?: No Physical Exam Vital Signs: Vital Signs: Last Vital Signs Temp 97.7 F 04/27/22 07:45 Pulse 69 04/27/22 07:45 Resp 18 04/27/22 07:45 BP 113/66 04/27/22 07:45 Pulse Ox 99 04/27/22 07:45 O2 Del Method 04/27/22 07:45 BMI result Body Mass Index 18.6 Const: Other: Awake alert oriented x3 no acute distress. Handling secretions without issue HEENT: Other: Tonsils 1+ bilaterally; no uvular compression Resp: Other: Clear to auscultation bilaterally no rales rhonchi or wheezes Cardio: Other: No S4; positive S1-S2; no S3 murmurs rubs or gallops GI: Other: Soft nontender nondistended normoactive bowel sounds Neuro: Other: Cranial nerves 2-12 grossly intact as tested. Motor 5/5 all extremities. Sensation intact. Cognition appropriate Extrem: Other: No edema bilaterally DS: Data Data Completed and Pending Labs on day of discharge: Preliminary micro results at discharge 04/24/22 21:40 Blood Culture - Preliminary Blood - Venous No growth after 48 hours. 04/24/22 21:40 Blood Culture - Preliminary Blood - Venous No growth after 48 hours. 04/25/22 10:40 Throat Culture - Preliminary Throat Culture in progress. Discharge Plan Discharge Anticipated Discharge Date/Time: 04/27/22 09:16 Patient Disposition: Home, Self-Care Discharge Diagnosis: Pharyngitis Referrals: Physician,Unknown J [Primary Care Provider] - 1 Week Discharge Medications: New penicillin V potassium 250 mg Tablet 500 mg PO TID Qty: 30 0RF methylprednisolone [Methylpred DP] 4 mg tablets,dose pack 4 mg PO DAILY Qty: 21 0RF Rx Instructions: As directed Discharge Orders: Discharge Order (Routine); Ordered 04/27/22 Ordered By: Avtar Stanley Diet: Advance to usual diet Activity on Discharge: As tolerated Stand Alone Forms: Patient Portal Discharge page, Work/School Release Care Plan Goals: Complete penicillin VK 3 times a day for 10 days; Medrol Dosepak as ordered Health Concerns: Follow-up with your PCP in 2 weeks Plan of Treatment: Return if increased swelling difficulty breathing or swallowing Assessment: See discharge summary
--- NOTE | 2022-04-27 09:12 | MHC.CM.PN ---
PATIENT IS DC HOME - SELF CARE RN AWARE OF PLAN.
[2022-04-27] MEDS: Penicillin V Potassium 250 MG TABLET 500 MG PO (09:18)
[2022-04-29 10:17] LABS: N. gonorrhoeae RNA TMA, Throat NOT DETECTED
== END 2022-04-27 11:20 | disposition home or self-care (01) | DRG 153 ==
LOC: HO.ED 23:36 → HO.EDOVER 04-25 01:19 → HO.ICU 04-25 02:32 → HO.S3 04-25 10:32
PROVIDERS: Internal Medicine Pulmonary Disease; Physician Assistant; Admitting Provider Registered Nurse Community Health; Emergency Provider Student in an Organized Health Care Education/Training Program; PCP Family Medicine; Visit Provider Hospitalist
DX: J02.9 Acute pharyngitis, unspecified (principal); Z20.822 Contact with and (suspected) exposure to COVID-19
CPT/HCPCS: 36415; 70491; 80048; 80053; 81001; 82803; 83605; 83735; 84100; 84702; 85025; 86308; 87040; 87070; 87086; 87147; 87591; 87635; 87651; 99285; J1100; J1650; J1885; Q9967

== ENCOUNTER 2022-05-17 15:17 | Emergency (ER) | payer OTHER, SELFPAY ==
[2022-05-17 15:25] VITALS: BP 118/53; PULSE 98; RESP 18; TEMP 36.8; O2SAT 100; BMI 22.4
--- NOTE | 2022-05-17 15:25 | ED.GENADULT ---
HPI - General Adult General Chief complaint: General Medical Stated complaint: throat pain Related Data Previous Rx's Medication Instructions Recorded methylprednisolone 4 mg tablets in 4 mg PO DAILY #21 ea 04/27/22 a dose pack (Methylpred DP) penicillin V potassium 250 mg 500 mg PO TID #30 tabs 04/27/22 tablet Allergies Allergy/AdvReac Type Severity Reaction Status Date / Time shellfish derived Allergy Hives Verified 11/21/21 13:42 [facility] Social History Social History Household Members: Family Housing: House Do you presently have visiting nurse or other home services: No Patient Tobacco Use Status: Never used Tobacco e-Cigarette/Vaping Use: Never Used Second Hand Smoke Exposure: No Substance Use Type: Marijuana service: No Current occupational status: employed and student Course Course Course Narrative: -triage -pt c/o of 2 days of sore throat, cannot eat drink or eat due to pain -recently, end of april had similar episode, was admitted to the ICU for airway check -no PMH -PE: enalrged bilateral tonsils, well appearing, able to swallow, no airway compromise, clear lungs, speaking in full sentences, no fever, only chills -labs pending Discharge Plan Discharge Prescriptions: No Action penicillin V potassium 250 mg Tablet 500 mg PO TID Qty: 30 0RF methylprednisolone [Methylpred DP] 4 mg tablets,dose pack 4 mg PO DAILY Qty: 21 0RF Rx Instructions: As directed
[2022-05-17 19:04] VITALS: BP 111/51; PULSE 86; RESP 18; O2SAT 97
[2022-05-17 19:10] LABS: MANUAL DIFF FLAG NO
[2022-05-17 19:12] LABS: Basophils Absolute Auto 0.1 X10*3/uL (0.0-0.2); Basophils Percent Auto 0.4 % (0-2); Eosinophils Percent Auto 0.2 % (0-4); Hematocrit 38.5 % (37.0-47.0); Imm Gran Abs Auto 0.03 X10*3/uL (0.00-0.03); Imm Gran Pct Auto 0.3 % (0.0-0.4); Lymphocytes Absolute Auto 1.6 X10*3/uL (1.2-4.9); Lymphocytes Percent Auto 13.7 % (20-40); Mean Corpuscular HGB Conc 33.8 g/dl (31.0-35.0); Mean Corpuscular Hemoglobin 30.1 pg (27.0-33.0); Mean Corpuscular Volume 89.1 fL (80.0-98.0); Mean Platelet Volume 9.9 fL (9.4-12.3); Monocytes Absolute Auto 0.7 X10*3/uL (0.1-1.2); Monocytes Percent Auto 5.9 % (2-11); Neutrophils Percent Auto 79.5 % (45-73); Platelet Count 254 X10*3/uL (160-400); Red Blood Count 4.32 X10*6/uL (4.20-5.50); Red Cell Distribution Width 13.2 % (11.0-16.0); White Blood Count 11.3 X10*3/uL (4.8-10.8)
[2022-05-17 19:26] LABS: Monotest Negative (Negative)
[2022-05-17 19:26] LABS: Strep A Nucleic Acid Negative (Negative)
[2022-05-17 19:27] LABS: COVID-19 Test Negative (Negative); IDNOW Serial# 16C4AD1C
[2022-05-17 19:28] LABS: Anion Gap 17 (12-20); Blood Urea Nitrogen 9 mg/dL (9-16); Calcium 9.7 mg/dL (8.4-10.2); Carbon Dioxide 26 mmol/L (22-29); Chloride 101 mmol/L (96-108); Creatinine Clr Calc Pharmacy 97.8; Estimated Glomerular Filt Rate > 60; Glucose Random 87 mg/dL (60-115); Potassium 4.4 mmol/L (3.3-5.1); Sodium 140 mmol/L (135-145)
--- NOTE | 2022-05-17 21:04 | ED_ITS ---
HPI - General Adult General Chief complaint: General Medical Stated complaint: throat pain Time Seen by Provider: 05/17/22 20:52 Source: patient Mode of arrival: ambulatory Limitations: no limitations History of Present Illness HPI narrative: 21 yold female presents to the ED for bilateral enlarged tonsils with some pain. patient denies any fever, chills, nausea, drooling, neck swelling, chest pain, shortness of breath, rash, itchy skin, nausea vomitting, lips swelling, tongue swelling, or inability to tolerate solid foods/liquids. Related Data Previous Rx's Medication Instructions Recorded methylprednisolone 4 mg tablets in 4 mg PO DAILY #21 ea 04/27/22 a dose pack (Methylpred DP) penicillin V potassium 250 mg 500 mg PO TID #30 tabs 04/27/22 tablet ibuprofen 400 mg tablet 400 mg PO Q6H PRN fever or pain 7 05/17/22 days #28 tabs prednisone 20 mg tablet 40 mg PO DAILY 5 days #10 tabs 05/17/22 Allergies Allergy/AdvReac Type Severity Reaction Status Date / Time shellfish derived Allergy Hives Verified 11/21/21 13:42 Review of Systems Review of Systems: enlarged tonsils Yes all other systems are reviewed and are negative PMFSH Social History Social History Household Members: Family Housing: House Do you presently have visiting nurse or other home services: No Patient Tobacco Use Status: Never used Tobacco e-Cigarette/Vaping Use: Never Used Second Hand Smoke Exposure: No Substance Use Type: Marijuana Advance Directives: No Advance Directives Information Provided: No service: No Current occupational status: employed and student Physical Exam ED Vital Signs: Vital Signs - 24 hr 05/17/22 15:25 05/17/22 19:04 Temperature 98.2 F Pulse Rate 98 86 Respiratory Rate 18 18 Blood Pressure 118/53 L 111/51 L Pulse Oximetry 100 97 Oxygen Delivery Method Room Air Room Air BMI result Body Mass Index 22.4 Const General: cooperative, healthy appearing, comfortable, no acute distress, well developed, alert and awake Orientation/consciousness: oriented to place, oriented to time and patient oriented x3 HENMT Other: Negative for drooling, change in voice, facial swelling, neck swelling, trismus, or vomiting. Tonslls are not kissing. Negative for tonsillar exudates. Head: Yes normal to inspection, Yes No palpable skull fracture present, Yes normocephalic, Yes atraumatic and No abrasion Ears: hearing grossly normal bilaterally, external ears normal, TM's normal patsy aterally, EAC's normal, mastoids normal and no periauricular adenopathy Throat: Yes posterior oropharynx normal, Yes uvula midline and Yes abnormal tonsil (bilaterally enlarged. negative for signs of peritonsillar abscess.) Eyes General: appearance normal, both eyes and all related structures Neck Neck: Yes normal visual inspection, Yes full ROM, Yes no lymphadenopathy, Yes no meningeal signs, Yes trachea midline, Yes supple, No anterior neck swelling and No tender Chest Chest palpation & inspection: normal inspection of the chest and normal palpation of entire chest wall Resp Effort & Inspection: normal respiratory effort and able to speak in complete sentences Auscultation: clear to auscultation bilaterally Cardio Jugular venous distension: no JVD Heart sounds: S1 normal heart sound present and S2 normal heart sound present GI Inspection: Yes normal to inspection and No abdominal wall ecchymosis Palpation (GI): Soft to palpation, not firm, nontender, no guarding and not rigid General: No CVA tenderness and Yes no CVA tenderness Back/Spine/Pelvis Back: no CVA tenderness, No CVA tenderness and No back tenderness Skin General skin exam: no rashes or lesions noted and elasticity normal Neuro General: oriented to place, oriented to time, patient oriented x3, tone normal and no meningeal signs Cranial nerves: Yes CN's II-XII intact bilaterally Extrem General: Yes normal to inspection and Yes full ROM Psych Appearance: grossly normal, well kempt and not disheveled Course Course Course Narrative: labs, covid, monospit, and strep ordered Reevaluation(s) Reevaluation #1: Patient is well appearing and laughing with mother. patient is speaking in full sentences and not in any respiratory distress. COvid, strep, mono negative. labs normal. discharged with motrin and prednisone. Mother states patient has ap pointment [facility] 05/31 Time: 21:14 Medications Administered Discontinued Medications Generic Name Dose Route Start Last Admin Trade Name Freq PRN Reason Stop Dose Admin Ibuprofen 800 mg 05/17/22 21:05 05/17/22 21:10 Ibuprofen 800 Mg Tablet PO 05/17/22 21:06 800 mg ONCE ONE Administration Prednisone 40 mg 05/17/22 21:05 05/17/22 21:10 Prednisone 20 Mg Tablet PO 05/17/22 21:06 40 mg ONCE ONE Administration Medical Decision Making MDM Narrative Medical decision making narrative: pharyngitis Lab Data Result diagrams: 05/17/22 19:01 05/17/22 19:01 Labs: Lab Results 05/17/22 05/17/22 05/17/22 Range/Units 19:00 19:00 19:01 WBC 11.3 H (4.8-10.8) X10*3/uL RBC 4.32 (4.20-5.50) X10*6/uL Hgb 13.0 (12.0-16.0) g/dl Hct 38.5 (37.0-47.0) % MCV 89.1 (80.0-98.0) fL MCH 30.1 (27.0-33.0) pg MCHC 33.8 (31.0-35.0) g/dl RDW 13.2 (11.0-16.0) % Plt Count 254 D (160-400) X10*3/uL MPV 9.9 (9.4-12.3) fL Immature Gran % (Auto) 0.3 (0.0-0.4) % Neut % (Auto) 79.5 H (45-73) % Lymph % (Auto) 13.7 L (20-40) % [place] % (Auto) 5.9 (2-11) % Eos % (Auto) 0.2 (0-4) % Baso % (Auto) 0.4 (0-2) % Lymph # (Auto) 1.6 (1.2-4.9) X10*3/uL [place] # (Auto) 0.7 (0.1-1.2) X10*3/uL Eos # (Auto) 0.0 (0.0-0.4) X10*3/uL Baso # (Auto) 0.1 (0.0-0.2) X10*3/uL Abs Immat Gran (auto) 0.03 (0.00-0.03) X10*3/uL Absolute Neuts (auto) 9.0 H (2.0-8.3) x10*3/uL Absolute Nucleated RBC 0.000 (0.0-0.012) X10*3/uL Nucleated RBC % (auto) 0.0 (0.0-0.2) /100WBC Sodium (135-145) mmol/L Potassium (3.3-5.1) mmol/L Chloride (96-108) mmol/L Carbon Dioxide (22-29) mmol/L Anion Gap (12-20) BUN (9-16) mg/dL Creatinine (0.5-1.4) mg/dL Estim Creat Clear Calc Estimated GFR Random Glucose (60-115) mg/dL Lactic Acid (0.5-2.0) mmol/L Calcium (8.4-10.2) mg/dL COVID-19 (MARISOL) Negative (Negative) COVID-19 Clin Com See Note Monoscreen (Negative) S. pyogenes GrpA TIM Negative (Negative) 05/17/22 05/17/22 05/17/22 Range/Units 19:01 19:01 19:02 WBC (4.8-10.8) X10*3/uL RBC (4.20-5.50) X10*6/uL Hgb (12.0-16.0) g/dl Hct (37.0-47.0) % MCV (80.0-98.0) fL MCH (27.0-33.0) pg MCHC (31.0-35.0) g/dl RDW (11.0-16.0) % Plt Count (160-400) X10*3/uL MPV (9.4-12.3) fL Immature Gran % (Auto) (0.0-0.4) % Neut % (Auto) (45-73) % Lymph % (Auto) (20-40) % [place] % (Auto) (2-11) % Eos % (Auto) (0-4) % Baso % (Auto) (0-2) % Lymph # (Auto) (1.2-4.9) X10*3/uL [place] # (Auto) (0.1-1.2) X10*3/uL Eos # (Auto) (0.0-0.4) X10*3/uL Baso # (Auto) (0.0-0.2) X10*3/uL Abs Immat Gran (auto) (0.00-0.03) X10*3/uL Absolute Neuts (auto) (2.0-8.3) x10*3/uL Absolute Nucleated RBC (0.0-0.012) X10*3/uL Nucleated RBC % (auto) (0.0-0.2) /100WBC Sodium 140 (135-145) mmol/L Potassium 4.4 (3.3-5.1) mmol/L Chloride 101 (96-108) mmol/L Carbon Dioxide 26 (22-29) mmol/L Anion Gap 17 (12-20) BUN 9 (9-16) mg/dL Creatinine 1.00 (0.5-1.4) mg/dL Estim Creat Clear Calc 97.8 Estimated GFR > 60 Random Glucose 87 (60-115) mg/dL Lactic Acid 1.0 (0.5-2.0) mmol/L Calcium 9.7 (8.4-10.2) mg/dL COVID-19 (MARISOL) (Negative) COVID-19 Clin Com Monoscreen Negative (Negative) S. pyogenes GrpA TIM (Negative) Discharge Plan Discharge Clinical Impression: Pharyngitis Patient Disposition: Home, Self-Care Instructions: Pharyngitis (ED) Additional Instructions: Recommend earlier follow up with ENT for evaluation for enlarged tonsils. Labs, covid, strep, and mono was normal. Return to the ED for any drooling, change in voice, chest pain, neck swelling, shortness of breath, fever, chills, inability to talk or handle solid food/liquid, or any other concerning symptoms. Prescriptions: New prednisone 20 mg tablet 40 mg PO DAILY 5 Days Qty: 10 0RF ibuprofen 400 mg tablet 400 mg PO Q6H PRN (Reason: fever or pain) 7 Days Qty: 28 0RF No Action penicillin V potassium 250 mg Tablet 500 mg PO TID Qty: 30 0RF methylprednisolone [Methylpred DP] 4 mg tablets,dose pack 4 mg PO DAILY Qty: 21 0RF Rx Instructions: As directed Stand Alone Forms: Work/School Release Interventions: ED Discharge Assessment Last Done: 05/17/22 21:31 Discharge Date/Time: 05/17/22 21:33 Print Language: Cambodian
[2022-05-17] MEDS: predniSONE 20 MG TABLET 40 MG PO (21:10)
[2022-05-17] MEDS: Ibuprofen 800 MG TABLET PO (21:10)
== END 2022-05-17 21:33 | disposition home or self-care (01) ==
PROVIDERS: Emergency Medicine; Emergency Provider Internal Medicine
DX: J02.9 Acute pharyngitis, unspecified (principal); Z20.822 Contact with and (suspected) exposure to COVID-19; F12.90 Cannabis use, unspecified, uncomplicated
CPT/HCPCS: 80048; 83605; 85025; 86308; 87040; 87635; 87651; 99283

== ENCOUNTER 2022-07-04 11:55 | Emergency (ER) | payer OTHER, SELFPAY ==
--- NOTE | ~2022-07-04 | CT_ITS ---
EXAMINATION: CT SOFT TISSUE NECK WITH CONTRAST CLINICAL INFORMATION: Concern for peritonsillar abscess. COMPARISON: CT scan of the neck 04/24/2022. TECHNIQUE: Following the intravenous administration of 60 mL of Omnipaque 350 intravenous contrast, helical imaging was performed in the axial plane with generation of coronal and sagittal reformatted images. This CT examination was performed using dose optimization techniques as appropriate, variously including the following: *Automated exposure control *Adjustment of mA and/or kV according to patient size (this includes techniques or standardized protocols for targeted exams where dose is matched to indication/reason for exam; i.e. extremities or head) *Use of iterative reconstruction technique DLP: 414 mGy-cm FINDINGS: There is relatively asymmetric fullness of the right palatine tonsil compared to the left. There is increased attenuation in the submandibular fat on the right, with loss of the fat planes extending to the right platysma muscle. No discrete fluid collections are demonstrated. There are moderately prominent lymph nodes bilaterally, the largest in the right level IIA region (2 cm) with some surrounding loss of fat attenuation. These findings may be consistent with phlegmonous change without a discrete fluid collection/abscess. Low-attenuation is noted extending along the inferior aspect of the right lingual tonsil and there is some thickening of the epiglottis on the right. The parotid glands are homogeneous in attenuation. The left submandibular gland appears normal. The laryngeal structures are normal. The parapharyngeal fat is preserved. The carotid sheath vasculature opacifies normally. No extra mucosal soft tissue mass or fluid collection is seen. No retropharyngeal fluid collection is seen. The thyroid gland is normal in size; there are a few areas of low attenuation which are not clinically significant bilaterally. The superior mediastinum is unremarkable. The lung apices are clear. The mastoid air cells are well-aerated. There is minimal mucoperiosteal thickening in the inferior maxillary sinuses bilaterally. The temporomandibular joints appear normal. There is no periapical disease. The bilateral mandibular and maxillary 3rd molar teeth are unerupted. Reversal of the normal cervical lordosis is nonspecific and may be positional or due to muscle spasm. The imaged portions of the brain parenchyma are unremarkable. CT/CT soft tissue neck w IV con IMPRESSION: 1. There is asymmetric fullness in the right palatine tonsil with increased attenuation in the submandibular fat on the right with loss of fat planes as described above, which may be consistent with phlegmonous change without a discrete fluid collection/abscess at present. Low-attenuation is noted extending along the inferior aspect of the right lingual tonsil with thickening of the epiglottis.
[2022-07-04 12:07] VITALS: BP 140/81; PULSE 92; RESP 19; TEMP 36.6; O2SAT 100; BMI 22.9
--- NOTE | 2022-07-04 12:07 | ED.GENADULT ---
HPI - General Adult General Chief complaint: General Medical <OLGA Torres - Last Filed: 07/04/22 16:21> Stated complaint: sore throat <OLGA Torres - Last Filed: 07/04/22 16:21> Time Seen by Provider: 07/04/22 12:21 <OLGA Torres - Last Filed: 07/04/22 16:21> Source: patient and family (Mother) <Selene Finnegan MD - Last Filed: 07/04/22 16:17> Mode of arrival: ambulatory <Selene Finnegan MD - Last Filed: 07/04/22 16:17> Limitations: no limitations <Selene Finnegan MD - Last Filed: 07/04/22 16:17> History of Present Illness HPI narrative: 21-year-old female presented with right-sided sore throat, symptoms started about 2 days ago with right-sided sore throat, patient had some voice change, but able to swallow with no difficulty breathing, patient had 5 episodes of throat infection in the last few months patient require 5 ER visits in the past, patient also been evaluated by ENT who started the patient on antibiotic and patient has a follow-up with ENT on the 9th of this month. <Selene Finnegan MD - Last Filed: 07/04/22 16:17> Related Data Home medications: Previous Rx's Medication Instructions Recorded methylprednisolone 4 mg tablets in 4 mg PO DAILY #21 ea 04/27/22 a dose pack (Methylpred DP) penicillin V potassium 250 mg 500 mg PO TID #30 tabs 04/27/22 tablet ibuprofen 400 mg tablet 400 mg PO Q6H PRN fever or pain 7 05/17/22 days #28 tabs prednisone 20 mg tablet 40 mg PO DAILY 5 days #10 tabs 05/17/22 clindamycin HCl 150 mg capsule 150 mg PO Q8H 10 days #30 caps 07/04/22 prednisone 20 mg tablet 20 mg PO BID #6 tabs 07/04/22 <OLGA Torres - Last Filed: 07/04/22 16:21> Allergies/adverse reactions: Allergies Allergy/AdvReac Type Severity Reaction Status Date / Time shellfish derived Allergy Hives Verified 11/21/21 13:42 <OLGA Torres - Last Filed: 07/04/22 16:21> Review of Systems Review of Systems: All other systems are reviewed and are negative Constitutional: Reports as per HPI and Reports no additional constitutional complaints Eyes: Reports as per HPI and Reports no additional eye complaints Reports system reviewed and no additional complaints, except as documented Cardiovascular: Reports as per HPI and Reports no additional cardiovascular complaints Respiratory: Reports as per HPI and Reports no additional respiratory complaints Gastrointestinal: Reports as per HPI and Reports no additional gastrointestinal complaints Genitourinary: Reports no additional female genitourinary complaints Musculoskeletal: Reports no additional musculoskeletal complaints Skin/Breast: Reports system reviewed and no additional complaints, except as docu Psychiatric: Reports no additional psychiatric complaints Endocrine: Reports no additional endocrine complaints Hematologic/Lymphatic: Reports no additional hematologic/lymphatic complaints Allergic/Immunologic: Reports no additional allergic/immunologic complaints Reports system reviewed and no additional complaints, except as documented and Reports Abnormal speech present <Selene Finnegan MD - Last Filed: 07/04/22 16:17> [facility] Social History Social History: Social History Household Members: Family Housing: House Do you presently have visiting nurse or other home services: No Alcohol intake: never Patient Tobacco Use Status: Never used Tobacco Smoked in Last 30 Days: No e-Cigarette/Vaping Use: Never Used Second Hand Smoke Exposure: No Use of substances other than those prescribed or required for medical reasons: No Substance Use Type: Marijuana Advance Directives: No Advance Directives Information Provided: No Patient : No service: No Current occupational status: employed and student <OLGA Torres - Last Filed: 07/04/22 16:21> Physical Exam ED Vital Signs: Vital Signs - 24 hr 07/04/22 12:07 07/04/22 15:00 Temperature 98 F Pulse Rate 92 76 Respiratory Rate 19 14 Blood Pressure 140/81 H 105/59 L Pulse Oximetry 100 99 Oxygen Delivery Method Room Air Room Air BMI result Body Mass Index 22.9 <OLGA Torres - Last Filed: 07/04/22 16:21> Vital Signs - 24 hr 07/04/22 12:07 07/04/22 15:00 Temperature 98 F Pulse Rate 92 76 Respiratory Rate 19 14 Blood Pressure 140/81 H 105/59 L Pulse Oximetry 100 99 Oxygen Delivery Method Room Air Room Air BMI result Body Mass Index 22.9 Vital signs have been reviewed as appeared to be correct. Blood pressure normal. Heart rate normal. Respiration rate normal. Temperature normal. Oxygen saturation normal. <Selene Finnegan MD - Last Filed: 07/04/22 16:17> Appearance: Alert. Oriented X3. No acute distress. Head: Normal external exam. Normocephalic. Atraumatic. No Shelton signs noted. No raccoon eyes noted Eyes: PERRLA. EOMI. Conjunctiva and sclera normal. Eyelids normal. ENT: TM's Normal. Right tonsillar enlargement with exudate, no abscess or fluctuation, Uvula midline. Moist mucous membranes. No trismus noted. No drooling noted. No muffled voice noted. Neck: Normal inspection. Neck supple. FROM. No adenopathy. Thyroid Normal. No meningeal signs. No neck mass noted. CVS: Normal heart rate and rhythm. Heart sound normal. No murmurs noted. Pulses normal throughout. Respiratory: No respiratory distress. Painless inspiration. Breath sounds normal. No wheezes/rales/rhonchi noted. Chest nontender. No accessory muscle usage noted or decreased air movement noted. Abdomen: Soft and nontender. Bowel sounds normal in all 4 quadrants. No distention noted. No organomegaly noted. No visible injury noted. Back: No CVA tenderness. Full range of motion noted. Skin: Skin warm and dry. Normal skin color. Normal skin turgor. No rashes/lesions/lacerations noted. Extremities: No lower extremity edema. Extremities exhibit normal range of motion. Extremities nontender. Neuro: Oriented X 3. Cranial nerve exam: II-XII are grossly intact No motor deficit. No sensory deficit. Reflexes normal. <Selene Finnegan MD - Last Filed: 07/04/22 16:17> Course Course Course Narrative: RME performed by Angelica Rueda PA-C. Patient is a 21 year old female presenting to the emergency department with a sore throat. Swabs, labs and imaging ordered, patient placed in the waiting room pending results and room availability. <OLGA Torres - Last Filed: 07/04/22 16:21> Reevaluation(s) Reevaluation #1: 21-year-old female with pharyngitis that is positive for strep infection, multiple history of strep pharyngitis require multiple courses of penicillins. Patient has been evaluated by ENT has a follow-up appointment on 07/12/2022 patient already feels better with IV Decadron and IV clindamycin will start the patient on clindamycin and a short course prednisone and patient was instructed to follow-up with ENT as scheduled. <Selene Finnegan MD - Last Filed: 07/04/22 16:17> Time: 16:13 <Selene Finnegan MD - Last Filed: 07/04/22 16:17> Medications Administered Discontinued Medications Generic Name Dose Route Start Last Admin Trade Name Freq PRN Reason Stop Dose Admin Dexamethasone Sodium Phosphate 6 mg 07/04/22 12:36 07/04/22 13:26 Dexamethasone Sod Phosphate 4 Mg/Ml Vial IVPUSH 07/04/22 12:37 6 mg ONCE ONE Administration Clindamycin Phosphate 900 mg in 50 mls @ 50 mls/hr 07/04/22 12:36 07/04/22 14:32 Cleocin IV 07/04/22 13:35 Infused ONCE ONE Infusion Iohexol 100 ml 07/04/22 14:44 07/04/22 14:45 Iohexol 350 Mg/Ml 100 Ml Infus..Btl IV 07/04/22 14:45 60 ml ONCE ONE Administration <OLGA Torres - Last Filed: 07/04/22 16:21> Medications Administered Discontinued Medications Generic Name Dose Route Start Last Admin Trade Name Freq PRN Reason Stop Dose Admin Dexamethasone Sodium Phosphate 6 mg 07/04/22 12:36 07/04/22 13:26 Dexamethasone Sod Phosphate 4 Mg/Ml Vial IVPUSH 07/04/22 12:37 6 mg ONCE ONE Administration Clindamycin Phosphate 900 mg in 50 mls @ 50 mls/hr 07/04/22 12:36 07/04/22 14:32 Cleocin IV 07/04/22 13:35 Infused ONCE ONE Infusion Iohexol 100 ml 07/04/22 14:44 07/04/22 14:45 Iohexol 350 Mg/Ml 100 Ml Infus..Btl IV 07/04/22 14:45 60 ml ONCE ONE Administration <Selene Finnegan MD - Last Filed: 07/04/22 16:17> Medical Decision Making Differential Diagnosis Differential Diagnoses: The differential diagnosis associated with the presentation includes (Strep pharyngitis/viral pharyngitis/[employer]/sepsis) <Selene Finnegan MD - Last Filed: 07/04/22 16:17> Lab Data MDM Lab Attestation statement: I reviewed the patient's lab results. <Selene Finnegan MD - Last Filed: 07/04/22 16:17> Result Diagrams: : 07/04/22 12:43 07/04/22 12:43 <OLGA Torres - Last Filed: 07/04/22 16:21> Labs: Lab Results 07/04/22 07/04/22 07/04/22 Range/Units 12:43 12:43 12:43 WBC 12.7 H (4.8-10.8) X10*3/uL RBC 4.33 (4.20-5.50) X10*6/uL Hgb 12.5 (12.0-16.0) g/dl Hct 37.0 (37.0-47.0) % MCV 85.5 (80.0-98.0) fL MCH 28.9 (27.0-33.0) pg MCHC 33.8 (31.0-35.0) g/dl RDW 13.0 (11.0-16.0) % Plt Count 313 (160-400) X10*3/uL MPV 9.6 (9.4-12.3) fL Immature Gran % (Auto) 0.3 (0.0-0.4) % Neut % (Auto) 84.4 H (45-73) % Lymph % (Auto) 8.3 L (20-40) % Montgomery % (Auto) 6.5 (2-11) % Eos % (Auto) 0.2 (0-4) % Baso % (Auto) 0.3 (0-2) % Lymph # (Auto) 1.1 L (1.2-4.9) X10*3/uL Montgomery # (Auto) 0.8 (0.1-1.2) X10*3/uL Eos # (Auto) 0.0 (0.0-0.4) X10*3/uL Baso # (Auto) 0.0 (0.0-0.2) X10*3/uL Abs Immat Gran (auto) 0.04 H (0.00-0.03) X10*3/uL Absolute Neuts (auto) 10.7 H (2.0-8.3) x10*3/uL Absolute Nucleated RBC 0.000 (0.0-0.012) X10*3/uL Nucleated RBC % (auto) 0.0 (0.0-0.2) /100WBC ESR (0-20) MM/HR Sodium (135-145) mmol/L Potassium (3.3-5.1) mmol/L Chloride (96-108) mmol/L Carbon Dioxide (22-29) mmol/L Anion Gap (12-20) BUN (9-16) mg/dL Creatinine (0.5-1.4) mg/dL Estim Creat Clear Calc Estimated GFR Random Glucose (60-115) mg/dL Lactic Acid (0.5-2.0) mmol/L Calcium (8.4-10.2) mg/dL Magnesium (1.6-2.6) mg/dL Total Bilirubin (0.0-1.0) mg/dL AST (5-31) U/L ALT (0-31) U/L Alkaline Phosphatase (39-117) U/L C-Reactive Protein (< or = 0.50) mg/dL Total Protein (6.5-8.0) g/dL Albumin (3.5-5.0) g/dL Influenza Type A (PCR) NEGATIVE (Negative) Influenza Type B (PCR) NEGATIVE (Negative) RSV RNA Qual (PCR) NEGATIVE (Negative) SARS-CoV-2 RNA (RT-PCR) NEGATIVE (Negative) S. pyogenes GrpA TIM Positive A (Negative) 07/04/22 07/04/22 07/04/22 Range/Units 12:43 12:43 12:43 WBC (4.8-10.8) X10*3/uL RBC (4.20-5.50) X10*6/uL Hgb (12.0-16.0) g/dl Hct (37.0-47.0) % MCV (80.0-98.0) fL MCH (27.0-33.0) pg MCHC (31.0-35.0) g/dl RDW (11.0-16.0) % Plt Count (160-400) X10*3/uL MPV (9.4-12.3) fL Immature Gran % (Auto) (0.0-0.4) % Neut % (Auto) (45-73) % Lymph % (Auto) (20-40) % Montgomery % (Auto) (2-11) % Eos % (Auto) (0-4) % Baso % (Auto) (0-2) % Lymph # (Auto) (1.2-4.9) X10*3/uL Montgomery # (Auto) (0.1-1.2) X10*3/uL Eos # (Auto) (0.0-0.4) X10*3/uL Baso # (Auto) (0.0-0.2) X10*3/uL Abs Immat Gran (auto) (0.00-0.03) X10*3/uL Absolute Neuts (auto) (2.0-8.3) x10*3/uL Absolute Nucleated RBC (0.0-0.012) X10*3/uL Nucleated RBC % (auto) (0.0-0.2) /100WBC ESR 8 (0-20) MM/HR Sodium 138 (135-145) mmol/L Potassium 3.8 (3.3-5.1) mmol/L Chloride 106 (96-108) mmol/L Carbon Dioxide 25 (22-29) mmol/L Anion Gap 11 L (12-20) BUN 10 (9-16) mg/dL Creatinine 0.85 (0.5-1.4) mg/dL Estim Creat Clear Calc 115.1 Estimated GFR > 60 Random Glucose 87 (60-115) mg/dL Lactic Acid 0.7 (0.5-2.0) mmol/L Calcium 9.2 (8.4-10.2) mg/dL Magnesium 2.1 (1.6-2.6) mg/dL Total Bilirubin 1.1 H (0.0-1.0) mg/dL AST 19 (5-31) U/L ALT 12 (0-31) U/L Alkaline Phosphatase 76 (39-117) U/L C-Reactive Protein 4.07 H (< or = 0.50) mg/dL Total Protein 6.8 (6.5-8.0) g/dL Albumin 4.5 (3.5-5.0) g/dL Influenza Type A (PCR) (Negative) Influenza Type B (PCR) (Negative) RSV RNA Qual (PCR) (Negative) SARS-CoV-2 RNA (RT-PCR) (Negative) S. pyogenes GrpA TIM (Negative) <OLGA Torres - Last Filed: 07/04/22 16:21> Lab Results 07/04/22 07/04/22 07/04/22 Range/Units 12:43 12:43 12:43 WBC 12.7 H (4.8-10.8) X10*3/uL RBC 4.33 (4.20-5.50) X10*6/uL Hgb 12.5 (12.0-16.0) g/dl Hct 37.0 (37.0-47.0) % MCV 85.5 (80.0-98.0) fL MCH 28.9 (27.0-33.0) pg MCHC 33.8 (31.0-35.0) g/dl RDW 13.0 (11.0-16.0) % Plt Count 313 (160-400) X10*3/uL MPV 9.6 (9.4-12.3) fL Immature Gran % (Auto) 0.3 (0.0-0.4) % Neut % (Auto) 84.4 H (45-73) % Lymph % (Auto) 8.3 L (20-40) % Montgomery % (Auto) 6.5 (2-11) % Eos % (Auto) 0.2 (0-4) % Baso % (Auto) 0.3 (0-2) % Lymph # (Auto) 1.1 L (1.2-4.9) X10*3/uL Montgomery # (Auto) 0.8 (0.1-1.2) X10*3/uL Eos # (Auto) 0.0 (0.0-0.4) X10*3/uL Baso # (Auto) 0.0 (0.0-0.2) X10*3/uL Abs Immat Gran (auto) 0.04 H (0.00-0.03) X10*3/uL Absolute Neuts (auto) 10.7 H (2.0-8.3) x10*3/uL Absolute Nucleated RBC 0.000 (0.0-0.012) X10*3/uL Nucleated RBC % (auto) 0.0 (0.0-0.2) /100WBC ESR (0-20) MM/HR Sodium (135-145) mmol/L Potassium (3.3-5.1) mmol/L Chloride (96-108) mmol/L Carbon Dioxide (22-29) mmol/L Anion Gap (12-20) BUN (9-16) mg/dL Creatinine (0.5-1.4) mg/dL Estim Creat Clear Calc Estimated GFR Random Glucose (60-115) mg/dL Lactic Acid (0.5-2.0) mmol/L Calcium (8.4-10.2) mg/dL Magnesium (1.6-2.6) mg/dL Total Bilirubin (0.0-1.0) mg/dL AST (5-31) U/L ALT (0-31) U/L Alkaline Phosphatase (39-117) U/L C-Reactive Protein (< or = 0.50) mg/dL Total Protein (6.5-8.0) g/dL Albumin (3.5-5.0) g/dL Influenza Type A (PCR) NEGATIVE (Negative) Influenza Type B (PCR) NEGATIVE (Negative) RSV RNA Qual (PCR) NEGATIVE (Negative) SARS-CoV-2 RNA (RT-PCR) NEGATIVE (Negative) S. pyogenes GrpA TIM Positive A (Negative) 07/04/22 07/04/22 07/04/22 Range/Units 12:43 12:43 12:43 WBC (4.8-10.8) X10*3/uL RBC (4.20-5.50) X10*6/uL Hgb (12.0-16.0) g/dl Hct (37.0-47.0) % MCV (80.0-98.0) fL MCH (27.0-33.0) pg MCHC (31.0-35.0) g/dl RDW (11.0-16.0) % Plt Count (160-400) X10*3/uL MPV (9.4-12.3) fL Immature Gran % (Auto) (0.0-0.4) % Neut % (Auto) (45-73) % Lymph % (Auto) (20-40) % Montgomery % (Auto) (2-11) % Eos % (Auto) (0-4) % Baso % (Auto) (0-2) % Lymph # (Auto) (1.2-4.9) X10*3/uL Montgomery # (Auto) (0.1-1.2) X10*3/uL Eos # (Auto) (0.0-0.4) X10*3/uL Baso # (Auto) (0.0-0.2) X10*3/uL Abs Immat Gran (auto) (0.00-0.03) X10*3/uL Absolute Neuts (auto) (2.0-8.3) x10*3/uL Absolute Nucleated RBC (0.0-0.012) X10*3/uL Nucleated RBC % (auto) (0.0-0.2) /100WBC ESR 8 (0-20) MM/HR Sodium 138 (135-145) mmol/L Potassium 3.8 (3.3-5.1) mmol/L Chloride 106 (96-108) mmol/L Carbon Dioxide 25 (22-29) mmol/L Anion Gap 11 L (12-20) BUN 10 (9-16) mg/dL Creatinine 0.85 (0.5-1.4) mg/dL Estim Creat Clear Calc 115.1 Estimated GFR > 60 Random Glucose 87 (60-115) mg/dL Lactic Acid 0.7 (0.5-2.0) mmol/L Calcium 9.2 (8.4-10.2) mg/dL Magnesium 2.1 (1.6-2.6) mg/dL Total Bilirubin 1.1 H (0.0-1.0) mg/dL AST 19 (5-31) U/L ALT 12 (0-31) U/L Alkaline Phosphatase 76 (39-117) U/L C-Reactive Protein 4.07 H (< or = 0.50) mg/dL Total Protein 6.8 (6.5-8.0) g/dL Albumin 4.5 (3.5-5.0) g/dL Influenza Type A (PCR) (Negative) Influenza Type B (PCR) (Negative) RSV RNA Qual (PCR) (Negative) SARS-CoV-2 RNA (RT-PCR) (Negative) S. pyogenes GrpA TIM (Negative) <Selene Finnegan MD - Last Filed: 07/04/22 16:17> Independent Interpretation I performed an independent interpretation of an: CT Scan (CT of the neck:1. There is asymmetric fullness in the right palatine tonsil with increased attenuation in the submandibular fat on the right with loss of fat planes as described above, which may be consistent with phlegmonous change without a discrete fluid collection/abscess at present. Low-attenua) <Selene Finnegan MD - Last Filed: 07/04/22 16:17> Radiology Impression Discussion of test interpretation with radiology: I have reviewed the radiologist's reading. <Selene Finnegan MD - Last Filed: 07/04/22 16:17> Discharge Plan Discharge Clinical Impression: Pharyngitis <OLGA Torres - Last Filed: 07/04/22 16:21> Patient Disposition: Home, Self-Care <OLGA Torres - Last Filed: 07/04/22 16:21> Instructions: Pharyngitis (ED) <OLGA Torres - Last Filed: 07/04/22 16:21> Additional Instructions: Follow-up with your ENT doctor as scheduled on July 12. <OLGA Torres - Last Filed: 07/04/22 16:21> Prescriptions: New clindamycin HCl 150 mg capsule 150 mg PO Q8H 10 Days Qty: 30 0RF prednisone 20 mg tablet 20 mg PO BID Qty: 6 0RF No Action prednisone 20 mg tablet 40 mg PO DAILY 5 Days Qty: 10 0RF ibuprofen 400 mg tablet 400 mg PO Q6H PRN (Reason: fever or pain) 7 Days Qty: 28 0RF penicillin V potassium 250 mg Tablet 500 mg PO TID Qty: 30 0RF methylprednisolone [Methylpred DP] 4 mg tablets,dose pack 4 mg PO DAILY Qty: 21 0RF Rx Instructions: As directed <OLGA Torres - Last Filed: 07/04/22 16:21> Referrals: Fozia Hamlin MD [Primary Care Provider] - <OLGA Torres - Last Filed: 07/04/22 16:21> Stand Alone Forms: Work/School Release <OLGA Torres - Last Filed: 07/04/22 16:21>
[2022-07-04 12:48] LABS: MANUAL DIFF FLAG NO
[2022-07-04 12:56] LABS: Basophils Percent Auto 0.3 % (0-2); Eosinophils Percent Auto 0.2 % (0-4); Hemoglobin 12.5 g/dl (12.0-16.0); Imm Gran Abs Auto 0.04 X10*3/uL (0.00-0.03); Imm Gran Pct Auto 0.3 % (0.0-0.4); Lymphocytes Absolute Auto 1.1 X10*3/uL (1.2-4.9); Lymphocytes Percent Auto 8.3 % (20-40); Mean Corpuscular HGB Conc 33.8 g/dl (31.0-35.0); Mean Corpuscular Hemoglobin 28.9 pg (27.0-33.0); Mean Corpuscular Volume 85.5 fL (80.0-98.0); Mean Platelet Volume 9.6 fL (9.4-12.3); Monocytes Absolute Auto 0.8 X10*3/uL (0.1-1.2); Monocytes Percent Auto 6.5 % (2-11); Neutrophils Absolute Auto 10.7 x10*3/uL (2.0-8.3); Neutrophils Percent Auto 84.4 % (45-73); Platelet Count 313 X10*3/uL (160-400); Red Blood Count 4.33 X10*6/uL (4.20-5.50); White Blood Count 12.7 X10*3/uL (4.8-10.8)
[2022-07-04 13:00] LABS: Lactic Acid 0.7 mmol/L (0.5-2.0)
[2022-07-04 13:04] LABS: Alanine Aminotransferase 12 U/L (0-31); Albumin Level 4.5 g/dL (3.5-5.0); Alkaline Phosphatase 76 U/L (39-117); Anion Gap 11 (12-20); Aspartate Amino Transferase 19 U/L (5-31); Bilirubin Total 1.1 mg/dL (0.0-1.0); Blood Urea Nitrogen 10 mg/dL (9-16); C Reactive Protein 4.07 mg/dL (< or = 0.50); Calcium 9.2 mg/dL (8.4-10.2); Carbon Dioxide 25 mmol/L (22-29); Chloride 106 mmol/L (96-108); Creatinine Clr Calc Pharmacy 115.1; Estimated Glomerular Filt Rate > 60; Glucose Random 87 mg/dL (60-115); Magnesium 2.1 mg/dL (1.6-2.6); Potassium 3.8 mmol/L (3.3-5.1); Sodium 138 mmol/L (135-145); Total Protein 6.8 g/dL (6.5-8.0)
[2022-07-04 13:06] LABS: IDNOW Serial# 6674DD1D; Strep A Nucleic Acid Positive (Negative)
[2022-07-04] MEDS: Clindamycin Phosphate/D5W 900 MG/50 ML PIGGYBACK 50 MG IV (13:26)
[2022-07-04] MEDS: dexAMETHasone sod phosphate 4 MG/ML VIAL 6 MG IVPUSH (13:26)
[2022-07-04 13:48] LABS: Influenza A PCR NEGATIVE (Negative); Influenza B PCR NEGATIVE (Negative); Resp Syncy Virus RNA Qual PCR NEGATIVE (Negative); SARS COV2 PCR INHOUSE NEGATIVE (Negative)
[2022-07-04 13:57] LABS: Erythrocyte Sedimentation Rate 8 MM/HR (0-20)
[2022-07-04] MEDS: iohexoL 350 MG/ML 100 ML INFUS..BTL IV (14:45)
[2022-07-04 15:00] VITALS: BP 105/59; PULSE 76; RESP 14; O2SAT 99
[2022-07-04 16:00] VITALS: BP 94/79; PULSE 87; RESP 16; TEMP 36.6; O2SAT 96
== END 2022-07-04 16:33 | disposition home or self-care (01) ==
PROVIDERS: Physician Assistant Medical; Emergency Provider Emergency Medicine; PCP Family Medicine
DX: J02.9 Acute pharyngitis, unspecified (principal); M54.2 Cervicalgia; Z20.822 Contact with and (suspected) exposure to COVID-19; Z79.899 Other long term (current) drug therapy
CPT/HCPCS: 0241U; 36415; 70491; 80053; 83605; 83735; 85025; 85652; 86140; 87040; 87651; 96374; 96375; 99284; J1100; Q9967